=== PATIENT | female | born 1995 | race Two or more races ===

== ENCOUNTER → 2019-12-12 13:40 | Outpatient (CLI) | payer OTHER, SELFPAY ==
--- NOTE | 2019-12-12 13:52 | US_ITS ---
PROCEDURE: US OB /MATERNAL DETAIL CLINICAL INDICATION: 20 wk gestation The COMPARISON: No exams were available for comparison FINDINGS: There is a single live fetus which is in cephalic presentation. The cervix is closed and measures 4 cm transabdominal. The placenta is anterior and grade 1. Complete survey performed and was unremarkable on the submitted images as in PACS. No discrete anomalies identified on survey imaging by technologist. Active fetus. Three-vessel cord with satisfactory umbilical cord insertion. 4- chamber heart noted. Survey of brain & ventricles Unremarkable. Face and neck survey unremarkable. Diaphragm and chest views unremarkable. Abdomen: Both kidneys noted and unremarkable. Stomach noted and satisfactory. Spine: Survey of the spine satisfactory with no anomalies identified nor imaged. Both arms and legs noted. Amniotic Fluid: Adequate. Maternal adnexa: No significant findings. Measurements: Average ultrasound age 25weeks 5days. Gestational Age 27 weeks 0 days. The patient however is unsure her dates or last menstrual period Estimated due date by ultrasound age 0703/21/2020. Estimated weight 883g BPD = 24weeks 4days OFD = 26 weeks 4 days HC = 25weeks 3days AC = 26weeks 3days FL = 26weeks 1day Growth Percentile= 10% Heart Rate = 144bpm Cerebellum = 27weeks 2days Humerus = 27weeks 3days HC/AC is 1.07 CI is 0.7 FL/BPD is 0.8 FL/AC is 0.22 IMPRESSION: There is a single live fetus which is in cephalic presentation with an average ultrasound age 25 weeks and 5 days. All parameters correlate with no obvious anomalies. The estimated weight is 10 percent however, the patient is unsure of her last menstrual period. Please see above for detail. Dictated by: Arnie Horta MD 12/12/2019 15:58 Electronically signed by Arnie Horta MD in [place] 12/12/2019 15:58
[2019-12-12 15:28] LABS: Basophils % 0.3 % (0.1-2.0); Eosinophils # 0.2 K/mm3 (0.0-0.4); Eosinophils % 2.5 % (0.1-12.0); Hematocrit 39.9 % (37.0-47.0); Hemoglobin 13.1 g/dL (12.2-16.2); Lymphocytes # 1.3 K/mm3 (0.7-4.5); Lymphocytes % 16.6 % (10-50); Mean Corpuscular HGB Conc 32.9 g/dL (31.8-35.4); Mean Corpuscular Hemoglobin 30.5 pg (27.0-31.2); Mean Corpuscular Volume 92.8 fl (81-99); Mean Platelet Volume 9.3 fl (7.4-10.4); Monocytes # 0.4 K/mm3 (0.1-1.0); Neutrophils # 5.7 K/mm3 (1.8-7.8); Neutrophils % 75.5 % (37.0-80.0); Platelet Count 208 K/mm3 (142-424); Red Cell Distribution Width 12.8 % (11.5-17.5); White Blood Count 7.5 K/mm3 (4.8-10.8)
[2019-12-14 05:07] LABS: HIV Screen 4th Generation wRfx Non Reactive (Non Reactive)
[2019-12-14 11:27] LABS: Hepatitis B Surface Antigen Negative (Negative); Hepatitis C Antibody <0.1 s/co ratio (0.0-0.9); Rapid Plasma Reagin Ab Titer Non Reactive (NonRea<1:1); Rubella Antibodies, IgG <0.90 index (Immune >0.99)
== END ==
PROVIDERS: Visit Provider Nurse Practitioner Obstetrics & Gynecology
DX: Z36.0 Encounter for antenatal screening for chromosomal anomalies (principal); Z3A.20 20 weeks gestation of pregnancy; Z34.90 Encounter for supervision of normal pregnancy, unspecified, unspecified trimester
CPT/HCPCS: 36415; 76811; 85025; 86592; 86703; 86762; 86850; 87340; 87380; G0432

== ENCOUNTER → 2019-12-17 17:10 | Outpatient (CLI) | payer OTHER, SELFPAY | PROVIDERS: Visit Provider Nurse Practitioner Obstetrics & Gynecology | DX: Z34.90 Encounter for supervision of normal pregnancy, unspecified, unspecified trimester (principal); Z3A.26 26 weeks gestation of pregnancy | CPT/HCPCS: 87086; 87088; 87186 ==

== ENCOUNTER → 2020-02-18 16:33 | Outpatient (CLI) | payer OTHER, SELFPAY | PROVIDERS: Visit Provider Nurse Practitioner Obstetrics & Gynecology | DX: Z34.90 Encounter for supervision of normal pregnancy, unspecified, unspecified trimester (principal) | CPT/HCPCS: 86403 ==

== ENCOUNTER → 2020-03-03 08:31 | Outpatient (CLI) | payer MEDICAID, SELFPAY ==
--- NOTE | 2020-03-03 08:34 | US_ITS ---
PROCEDURE: US OB BIOPHYSICAL PROFILE CLINICAL INDICATION: SGA Small for gestational age TECHNIQUE: FINDINGS: The following parameters are obtained: Average ultrasound age is Average 35weeks 1day Estimated due date by ultrasound is 04/06/2020. Estimated weight is 2,637g. This is 15th percentile BPD: 8.44 cm 34weeks 0days OFD: 11.10 cm 36weeks 0days HC: 31cm 34weeks 5days AC: 31.2cm 35weeks 1day FL: 7.10 cm 36weeks 3days heart rate: 152bpm bpm. HC/AC: 0.99 Cephalic index: 0.76 FL/BPD: 0.84 FL/AC: 0.23 Amniotic fluid index: 7.12cm. This is slightly low. Qualitative AFV: 2 breathing movements: 2 Gross body movements: 2 Tone: 2 Biophysical profile score: 8 Fetus is in cephalic presentation. Cervix is closed and measures 3 cm. The placenta is anterior and grade 2. IMPRESSION: There is a live intrauterine gestation at 35 weeks 1 day. Estimated weight is 2637 g which is 15th percentile. Amniotic fluid index is low at 7 cm. Biophysical profile is 8 of 8. Dictated by: Arnie Horta MD 03/04/2020 10:23 Electronically signed by Arnie Horta MD in [place] 03/04/2020 10:23
== END ==
PROVIDERS: PCP Nurse Practitioner Obstetrics & Gynecology; Visit Provider Nurse Practitioner Obstetrics & Gynecology
DX: O36.5990 Maternal care for other known or suspected poor fetal growth, unspecified trimester, not applicable or unspecified (principal)
CPT/HCPCS: 76816; 76819

== ENCOUNTER 2020-03-12 08:30 | Inpatient (IN) | payer MEDICAID, SELFPAY ==
[2020-03-12 06:12] VITALS: BP 111/56; PULSE 62; RESP 18; TEMP 37.2; O2SAT 99; BMI 28.9
[2020-03-12 07:11] LABS: Microscopic, Urine URINE MICROSCOPIC (MICROSCOPIC)
--- NOTE | 2020-03-12 07:11 | US_ITS ---
PROCEDURE: US OB BPP W/FET-MAT S/D CLINICAL INDICATION: decreased fhr COMPARISON: US OB BIOPHYSICAL PROFILE from 03/03/2020 FINDINGS: There is a single live fetus which is in cephalic presentation. heart body and breathing motion was noted. heart rate is 165 beats per minute. Placenta is anterior and grade 2. No obvious previa. There is oligohydramnios with an CALEB of 2 cm. Doppler of the umbilical artery shows an SD ratio of 2.0 and a resistive index of 0.51 Biophysical profile is 6 of 8. The technologist notes that the umbilical cord with seen around the neck however, this is not well documented on the images. Measurements: Average ultrasound age 35weeks 6days. Gestational Age 38 weeks 5 days Estimated due date by ultrasound age 0804/10/2020. Estimated weight 2,959g BPD = 33weeks 5days OFD = !Error HC = 34weeks 3days AC = 37weeks FL = 38weeks Growth Percentile= 16% Heart Rate = 165bpm Cerebellum = Humerus = HC/AC is 0.93 CI is 0.76 FL/BPD is 0.88 FL/AC is 0.22 IMPRESSION: Live IUP with an average ultrasound age of 35 weeks 6 days which is in cephalic presentation. Biophysical profile 6 of 8. Low CALEB of 2 cm Possible nuchal cord Dictated by: Arnie Horta MD 03/12/2020 13:32 Electronically signed by Arnie Horta MD in [place] 03/12/2020 13:32
[2020-03-12 07:12] LABS: Appearance,Urine CLEAR (Clear); Bilirubin,Urine Negative (Negative); Blood, Urine Negative (Negative); Color,Urine YELLOW (Yellow); Glucose,Urine (UA) Negative (Negative); Ketones,Urine Negative (Negative); Leukocyte Esterase,Urine 1+ (Negative); Nitrate,Urine POSITIVE (Negative); PH,Urine 6.5 (5.0-8.5); Protein,Urine Negative (Negative); Specific Gravity, Urine 1.015 (1.005-1.030); Urobilinogen,Urine 0.2 EU/dl (0.2)
[2020-03-12 07:26] LABS: Barbiturates Screen,Urine Negative ng/ml (<200)
[2020-03-12 07:27] LABS: Amphetamine/Metha Screen,Urine Negative ng/ml (<1000); Benzodiazepines Screen,Urine Negative ng/ml (<200)
[2020-03-12 07:28] LABS: Cannabinoid Screen,Urine Negative ng/ml (<50); Cocaine Screen,Urine Negative ng/ml (<300)
[2020-03-12 07:29] LABS: Bacteria,Urine 4+ /lpf; Methadone Screen,Urine Negative ng/ml (<300)
[2020-03-12 07:30] LABS: Opiate Screen,Urine Negative ng/ml (<300); Phencyclidine Screen,Urine Negative ng/ml (<25)
[2020-03-12 07:43] LABS: Basophils % 0.3 % (0.1-2.0); Eosinophils # 0.2 K/mm3 (0.0-0.4); Eosinophils % 1.8 % (0.1-12.0); Hematocrit 38.5 % (37.0-47.0); Lymphocytes # 1.7 K/mm3 (0.7-4.5); Lymphocytes % 15.4 % (10-50); Mean Corpuscular HGB Conc 33.9 g/dL (31.8-35.4); Mean Corpuscular Hemoglobin 30.1 pg (27.0-31.2); Mean Corpuscular Volume 88.9 fl (81-99); Mean Platelet Volume 8.9 fl (7.4-10.4); Monocytes # 0.8 K/mm3 (0.1-1.0); Monocytes % 6.7 % (1.7-9.3); Neutrophils # 8.4 K/mm3 (1.8-7.8); Neutrophils % 75.8 % (37.0-80.0); Platelet Count 235 K/mm3 (142-424); Red Blood Count 4.33 M/mm3 (4.20-5.40); Red Cell Distribution Width 13.6 % (11.5-17.5); White Blood Count 11.1 K/mm3 (4.8-10.8)
[2020-03-12 08:10] LABS: Coronavirus 19 IgG Antibody Negative (Negative); Coronavirus 19 IgM Antibody Negative (Negative)
--- NOTE | 2020-03-12 08:58 | HMH.OBAPHP ---
OB - H&P: HPI Antepartum - History of Present Illness Chief complaint: Decreased movement, contractions, oligohydramnios History of present illness: She is a 25-year-old 3 para 2 at 38+ weeks gestational age. She had decreased movement and was feeling contractions. She came into labor and delivery. She was found to be having a few contractions in the heart rate tracing was nonreactive. We did an ultrasound and biopsy profile was 6 out of 8. She had low fluid with an amniotic fluid index of 1. As a result of that we are admitting her for delivery. - History of Present Criteria for establishing EDC:: based on LMP only care: good care Ultrasounds: normal mid trimester US Obstetrical complications: other Medical complications: none [facility] History I have reviewed the patient's past medical history: Yes *Have you ever received a pneumonia vaccine?: No *Have you received a flu vaccine this season?: No Other Surgeries: Yes: No Previous Surgery. No: Amputation: No Fractures: No - *Social History Smoking Status: Never smoker Alcohol Intake: never *Occupational Status:: unemployed *Travel in the last 8 weeks: None Family Hx:: No significant family history Para: 2 Review of Systems - Review of Systems Review of systems:: pertinent systems reviewed and negative unless documented below Meds Home Medications Medication Instructions Recorded Confirmed Type prenat.vits,thelma,[id number] 1 tab PO DAILY 01/14/20 02/25/20 History terconazole 0.8 % vaginal cream 1 appful VAGINAL QHS 3 Days #20 g 01/14/20 02/25/20 Rx Allergies Allergy/AdvReac Type Severity Reaction Status Date / Time amoxicillin Allergy Intermediate Rash Verified 02/25/20 12:17 OB - H&P: Exam - Physical Exam Vital signs: Temp Pulse Resp BP Pulse Ox 99.0 F 62 18 111/56 L 99 03/12/20 06:12 03/12/20 06:12 03/12/20 06:12 03/12/20 06:12 03/12/20 06:12 - Constitutional no acute distress - Routine HEENT Exam Head: Present: normocephalic Eye: Present: EOMI, PERRL ENT: Present: mucous membranes moist - Routine Neck Exam Present: supple, full ROM - Routine Respiratory Exam Absent: accessory muscle use (good air entry bilaterally), respiratory distress, wheezes, crackles - Routine Cardiovascular Exam Present: RRR. Absent: murmur - Routine Abdominal Exam Present: soft, normoactive bowel sounds. Absent: tenderness, distended, guarding - Routine Rectal Exam Patient deferred: visual exam, digital exam - Routine Exam Patient deferred: external exam, groin exam, perineal exam - Routine Extremities Exam Present: full ROM. Absent: cyanosis, edema - Routine Skin Exam Present: intact. Absent: cyanosis - Routine Neurological Exam Present: alert, oriented X3 - Routine Psychiatric Exam Present: normal affect OB - Results - Labs Labs: Short CBC 03/12/20 Range/Units 07:25 WBC 11.1 H (4.8-10.8) K/mm3 Hgb 13.0 (12.2-16.2) g/dL Hct 38.5 (37.0-47.0) % Plt Count 235 (142-424) K/mm3 Urine 03/12/20 Range/Units 05:40 Urine Color Yellow (Yellow) Urine Appearance Clear (Clear) Urine pH 6.5 (5.0-8.5) Ur Specific [place] 1.015 (1.005-1.030) Urine Protein Negative (Negative) Urine Glucose (UA) Negative (Negative) OB - A/P Antepartum (1) Oligohydramnios Current visit: Yes Status: Acute (2) Decreased movement affecting management of mother, antepartum Current visit: Yes Status: Acute - Additional Plan Planning to breastfeed?: Yes Plan: induction Additional Information:: We will admit her overnight and plan to deliver her either later today or tomorrow.
--- NOTE | 2020-03-12 12:13 | HMH.LABNOT ---
Labor Note - Subjective: Date: 03/12/20 Time: 12:13 regular contraction - Objective: NST:: Reactive Contractions:: every 2-3 minutes Cervical Dilation:: 8 Effacement:: 100% Station: 0 Membranes: artificially ruptured Comment:: Thin meconium - Fetus: Monitoring?: Yes monitoring type:: External - Assessment: Labor progressing?: Yes Cephalopelvic disproportion?: No Patient Problems: All Active Problems Oligohydramnios (Acute) Decreased movement affecting management of mother, antepartum (Acute) (Acute) - Plan: Anesthesia for epidural?: No Continue to labor down?: Yes Plan for ?: No Continue to monitor?: Yes Start pushing?: No
--- NOTE | 2020-03-12 12:47 | HMH.OBAPHP ---
OB - H&P: HPI Antepartum - History of Present Illness Chief complaint: Contractions Comments: She is a 25-year-old 3 para 2 at 38 weeks gestational age. She came in having contractions. We did an ultrasound and there was no fluid around the baby. As result that she is admitted. She has progressed to 8 cm dilation on her own - History of Present Criteria for establishing EDC:: based on LMP only care: good care Ultrasounds: normal mid trimester US Obstetrical complications: none Medical complications: none [facility] History I have reviewed the patient's past medical history: Yes *Have you ever received a pneumonia vaccine?: No *Have you received a flu vaccine this season?: No Other Surgeries: Yes: No Previous Surgery. No: Amputation: No Fractures: No - *Social History Smoking Status: Never smoker Alcohol Intake: never *Occupational Status:: unemployed *Travel in the last 8 weeks: None Family Hx:: No significant family history Para: 2 Review of Systems - Review of Systems Review of systems:: unable to obtain Meds Home Medications Medication Instructions Recorded Confirmed Type prenat.vits,thelma,[id number] 1 tab PO DAILY 01/14/20 02/25/20 History terconazole 0.8 % vaginal cream 1 appful VAGINAL QHS 3 Days #20 g 01/14/20 02/25/20 Rx Allergies Allergy/AdvReac Type Severity Reaction Status Date / Time amoxicillin Allergy Intermediate Rash Verified 02/25/20 12:17 OB - H&P: Exam - Physical Exam Vital signs: Temp Pulse Resp BP Pulse Ox 99.0 F 62 18 111/56 L 99 03/12/20 06:12 03/12/20 06:12 03/12/20 06:12 03/12/20 06:12 03/12/20 06:12 - Constitutional no acute distress - Routine HEENT Exam Head: Present: normocephalic Eye: Present: EOMI, PERRL ENT: Present: mucous membranes moist - Routine Neck Exam Present: supple, full ROM - Routine Respiratory Exam Absent: accessory muscle use (good air entry bilaterally), respiratory distress, wheezes, crackles - Routine Cardiovascular Exam Present: RRR. Absent: murmur - Routine Abdominal Exam Present: soft, normoactive bowel sounds. Absent: tenderness, distended, guarding - Routine Rectal Exam Patient deferred: visual exam, digital exam - Routine Exam Patient deferred: external exam, groin exam, perineal exam - Routine Extremities Exam Present: full ROM. Absent: cyanosis, edema - Routine Skin Exam Present: intact. Absent: cyanosis - Routine Neurological Exam Present: alert, oriented X3 - Routine Psychiatric Exam Present: normal affect OB - Results - Labs Labs: Short CBC 03/12/20 Range/Units 07:25 WBC 11.1 H (4.8-10.8) K/mm3 Hgb 13.0 (12.2-16.2) g/dL Hct 38.5 (37.0-47.0) % Plt Count 235 (142-424) K/mm3 Urine 03/12/20 Range/Units 05:40 Urine Color Yellow (Yellow) Urine Appearance Clear (Clear) Urine pH 6.5 (5.0-8.5) Ur Specific [place] 1.015 (1.005-1.030) Urine Protein Negative (Negative) Urine Glucose (UA) Negative (Negative) OB - A/P Antepartum (1) Oligohydramnios Current visit: Yes Status: Acute (2) Decreased movement affecting management of mother, antepartum Current visit: Yes Status: Acute - Additional Plan Planning to breastfeed?: Yes Plan: other Additional Information:: She is an active labor and has progressed to full dilation. She is 8 cm dilated. We will expect a vaginal delivery.
[2020-03-12 13:27] LABS: Cord Blood PH 7.38 (7.35-7.45)
--- NOTE | 2020-03-12 13:31 | HMH.DN ---
- Delivery Note Delivery Date:: 03/12/20 Delivery Time:: 13:08 Anesthesia Type: None Was labor medically induced?: No Induction method: none Gestational age (weeks): 38 delivered prior to 39 weeks?: Yes Justification for early elective delivery:: Active Labor Infant Gender: Male at 1 minute: 8 at 5 minutes: 8 AF:: Thin meconium Delivery Procedure:: She is a 25-year-old 3 para 2 lady who came in with decreased movement and some contractions. She was observed and progressed to full dilation. She was found to be 8 cm dilated and we ruptured her membranes and there was thin meconium. She progressed to full dilation and delivered spontaneously a liveborn male child at 1:08 PM in the afternoon of March 12, 2020. On deliver the head was noted that there was a tight nuchal cord. I was able to deliver the rest the infant's body atraumatically. The nuchal cord was reduced. The oropharynx and nasopharynx were suctioned with DeLee suction. There was thin meconium. The baby was vigorous and we allowed the cord to continue to pulsate for approximately 1 minute. The cord was then doubly clamped and cut and the infant was handed off to the nurses who assigned Apgars of 8 at 1 minute and 8 at [address] Amor arrived to examine the baby. The patient received IV oxytocin. We obtained cord blood as well as cord pH. Using gentle traction on the cord and countertraction the fundus I was able to easily deliver the placenta intact. It had a normal three-vessel cord. There were no perineal or vaginal lacerations. Estimated blood loss was approximately 400 cc. Placental Delivery Description: Spontaneous
[2020-03-13 06:57] LABS: Hematocrit 36.9 % (37.0-47.0); Hemoglobin 12.4 g/dL (12.2-16.2)
--- NOTE | 2020-03-13 08:33 | HMH.ACPN2 ---
Internal Medicine - PN: Subj *Date: 03/13/20 *Time: 08:33 Interval history: She is doing well this morning. She is eating and drinking and ambulating. She is breast-feeding. Exam Vital signs and Labs for Last 24 Hours: Temp Pulse Resp BP Pulse Ox 99.0 F 62 18 111/56 L 99 03/12/20 06:12 03/12/20 06:12 03/12/20 06:12 03/12/20 06:12 03/12/20 06:12 Laboratory Results - last 24 hr 03/12/20 05:40: Urine Color Yellow, Urine Appearance Clear, Urine pH 6.5, Ur Specific [place] 1.015, Urine Protein Negative, Urine Glucose (UA) Negative, Urine Ketones Negative, Urine Blood Negative, Urine Nitrate Positive, Urine Bilirubin Negative, Urine Urobilinogen 0.2, Ur Leukocyte Esterase 1+ A, Urine RBC 3-5, Urine WBC 10-20, Ur Squamous Epith Cells 10-20, Urine Bacteria 4+ 03/12/20 05:40: Urine Opiates Screen Negative, Urine Methadone Screen Negative, Ur Barbituates Screen Negative, Ur Phencyclidine Scrn Negative, Ur Amphetamines Screen Negative, U Benzodiazepines Scrn Negative, Urine Cocaine Screen Negative, U Marijuana (THC) Screen Negative 03/12/20 13:20: Cord ABG pH 7.38 03/13/20 06:44: Hgb 12.4, Hct 36.9 L I & O for Last 24 hours: Intake & Output 03/10/20 03/11/20 03/12/20 03/13/20 11:59 11:59 11:59 11:59 Weight 153 lb Microbiology Reports for the Last 24 Hours: Microbiology 03/12/20 05:40 Urine,Clean Catch Urine Culture - Preliminary Gram Negative Rods - Constitutional no acute distress - *Routine HEENT Exam Head: Present: normocephalic Eye: Present: EOMI, PERRL ENT: Present: mucous membranes moist Assessment and Plan (1) Oligohydramnios Current visit: Yes Status: Acute Category: Medical Code(s): O41.00X0 - Oligohydramnios, unspecified trimester, not applicable or unspecified (2) Decreased movement affecting management of mother, antepartum Current visit: Yes Status: Acute Category: Medical Code(s): O36.9290 - Decreased movements, unspecified trimester, not applicable or unspecified - Assessment and plan all Dx Assessment and Plan for all problems:: She continues to do well. Will plan to send her home tomorrow.
[2020-03-13 08:37] VITALS: BP 94/46; PULSE 67; RESP 16; TEMP 36.7; O2SAT 98
--- NOTE | 2020-03-13 12:25 | HMH.DCSUM ---
General - General Admission date:: 03/12/20 Discharge date: 03/13/20 HPI HPI: She is a 25-year-old 3 para 2 who was 38 and 5 weeks gestational age. She came in having early labor. Hospital Course Hospital Course: She progressed rapidly and was found to be 8 cm dilated. She then rapidly progressed to full dilation and delivered spontaneously a liveborn male child at 1:08 PM in the afternoon of March 12, 2020. Baby weighed 7 pounds 2 ounces and was 19 inches long. He had Apgars of 8 at 1 minute and 8 at 5 minutes. She is breast-feeding. She has O+ blood, she is rubella nonimmune and was group B streptococcus negative. She will receive MMR prior to discharge. She would also like Depo-Provera prior to discharge as well. We will give her this. She will follow-up in my office in 2 weeks time. She will follow-up with Dr. Amor in his office for the baby. She will continue with her vitamins and iron. Her condition on discharge is stable and improved Objective Vital signs: Temp Pulse Resp BP Pulse Ox 98.0 F 67 16 94/46 L 98 03/13/20 08:37 03/13/20 08:37 03/13/20 08:37 03/13/20 08:37 03/13/20 08:37 no acute distress - *Routine HEENT Exam Head: Present: normocephalic Eye: Present: EOMI, PERRL ENT: Present: mucous membranes moist Results Labs on day of discharge: Labs from last 24 hours 03/13/20 03/12/20 03/12/20 06:44 13:20 05:40 Hgb 12.4 Hct 36.9 L Cord ABG pH 7.38 Urine Color Urine Appearance Urine pH Ur Specific [place] Urine Protein Urine Glucose (UA) Urine Ketones Urine Blood Urine Nitrate Urine Bilirubin Urine Urobilinogen Ur Leukocyte Esterase Urine RBC Urine WBC Ur Squamous Epith Cells Urine Bacteria Urine Opiates Screen Negative Urine Methadone Screen Negative Ur Barbituates Screen Negative Ur Phencyclidine Scrn Negative Ur Amphetamines Screen Negative U Benzodiazepines Scrn Negative Urine Cocaine Screen Negative U Marijuana (THC) Screen Negative 03/12/20 05:40 Hgb Hct Cord ABG pH Urine Color Yellow Urine Appearance Clear Urine pH 6.5 Ur Specific [place] 1.015 Urine Protein Negative Urine Glucose (UA) Negative Urine Ketones Negative Urine Blood Negative Urine Nitrate Positive Urine Bilirubin Negative Urine Urobilinogen 0.2 Ur Leukocyte Esterase 1+ A Urine RBC 3-5 Urine WBC 10-20 Ur Squamous Epith Cells 10-20 Urine Bacteria 4+ Urine Opiates Screen Urine Methadone Screen Ur Barbituates Screen Ur Phencyclidine Scrn Ur Amphetamines Screen U Benzodiazepines Scrn Urine Cocaine Screen U Marijuana (THC) Screen Preliminary micro results at discharge 03/12/20 05:40 Urine Culture - Preliminary Urine,Clean Catch Gram Negative Rods DS: Diagnosis - Discharge Diagnosis (1) Oligohydramnios Status: Acute (2) Decreased movement affecting management of mother, antepartum Status: Acute Discharge Plan - Patient Discharge Instructions ACTIVITY: No heavy lifting DIET: continue same diet Patient Instructions: DI for Hemorrhage, Pre-eclampsia, Labor and Delivery, Vaginal , DI for Depression, [facility] Post Discharge Instructions - Follow up Plan Follow up with: Marvin Michael MD [Staff Physician] - Disposition: Home, Self-Correction Medications: Home Medications Medication Instructions Recorded Confirmed Type prenat.vits,thelma,[id number]-[id number] 1 tab PO DAILY 01/14/20 03/13/20 History Prescriptions/Medication Reconciliation: Continued prenat.vits,thelma,[id number] 1 tab PO DAILY - Problem Reconciliation Problems Reviewed?: Yes
== END 2020-03-13 16:00 | disposition home or self-care (01) | DRG 807 ==
LOC: OBOUT 10:34 → OB 10:34
PROVIDERS: Admitting Provider Nurse Practitioner Obstetrics & Gynecology; Visit Provider Nurse Practitioner Obstetrics & Gynecology
DX: O41.03X0 Oligohydramnios, third trimester, not applicable or unspecified (principal); Z37.0 Single live birth; Z3A.38 38 weeks gestation of pregnancy; O36.8130 Decreased fetal movements, third trimester, not applicable or unspecified; Z23 Encounter for immunization
CPT/HCPCS: 59409; 36415; 59025; 76811; 76819; 76820; 80305; 81001; 82800; 85014; 85018; 85025; 86328; 86850; 87086; 87088; 87186; 90707; J1050